=== PATIENT | male | born 1990 | race Caucasian/White ===

== ENCOUNTER 2020-07-31 18:01 | Emergency (ER) | payer OTHER ==
[2020-07-31 18:29] VITALS: BP 128/86; PULSE 98; TEMP 98.3; BMI 42.5
[2020-07-31] MEDS ORDERED: KETOROLAC TROMETHAMINE 30 MG/1 ML VIAL IM ONE (18:49)
[2020-07-31] MEDS ORDERED: KETOROLAC TROMETHAMINE 30 MG/1 ML VIAL ONE (18:50)
== END 2020-07-31 18:54 | disposition home or self-care (01) ==
LOC: JER 18:01
PROC: 3E023GC Introduction of Other Therapeutic Substance into Muscle, Percutaneous Approach (ICD-10-PCS; principal; 2020-07-31)
DX: M25.512 Pain in left shoulder (principal); V49.40XA Driver injured in collision with unspecified motor vehicles in traffic accident, initial encounter
CPT/HCPCS: 99284-25

== ENCOUNTER → 2022-09-29 | Day surgery (SDC) | payer OTHER | END | disposition home or self-care (01) | LOC: JRADIR 10:07 | PROVIDERS: ATTEND Internal Medicine Endocrinology, Diabetes & Metabolism | PROC: 0G9H3ZX Drainage of Right Thyroid Gland Lobe, Percutaneous Approach, Diagnostic (ICD-10-PCS; principal; 2022-09-29) | DX: E06.3 Autoimmune thyroiditis (principal) | CPT/HCPCS: 10005; 76942; 88173; 88305-TC ==